=== PATIENT | female | born 1955 | race Caucasian/White ===

== ENCOUNTER → 2024-01-31 09:16 | Outpatient (REF) | payer MEDICARE, OTHER, SELFPAY | LOC: HWRAD 09:16 | PROVIDERS: ATTENDING PHYSICIAN Family Medicine | DX: I77.810 Thoracic aortic ectasia (principal) | CPT/HCPCS: 71250 ==

== ENCOUNTER → 2024-02-13 10:25 | Outpatient (REF) | payer MEDICARE, OTHER, SELFPAY | LOC: WDC 10:25 | PROVIDERS: ATTENDING PHYSICIAN Family Medicine | DX: Z12.31 Encounter for screening mammogram for malignant neoplasm of breast (principal) | CPT/HCPCS: 77063; 77067 ==

== ENCOUNTER 2024-10-09 06:31 | Day surgery (SDC) | payer MEDICARE, OTHER, SELFPAY | END 2024-10-09 15:01 | disposition home or self-care (01) | LOC: GI 06:31 | PROVIDERS: ATTENDING PHYSICIAN Internal Medicine | DX: Z12.11 Encounter for screening for malignant neoplasm of colon (principal); K64.9 Unspecified hemorrhoids; K57.30 Diverticulosis of large intestine without perforation or abscess without bleeding; D12.3 Benign neoplasm of transverse colon; K62.1 Rectal polyp; Z86.0101 Personal history of adenomatous and serrated colon polyps; Z80.0 Family history of malignant neoplasm of digestive organs | CPT/HCPCS: 45380; 88305 ==